=== PATIENT | female | born 1955 | race Hispanic/Latino ===

== ENCOUNTER 2022-08-29 16:07 | Emergency (ER) | payer OTHER ==
[~2022-08-29] VITALS: Ht 157.5 cm; Wt 63.0 kg
[2022-08-29 18:28] LABS: BASOPHILS % (AUTO) 0.7 % (0.0-5.0); EOSINOPHILS % (AUTO) 0.8 % (0.0-8.0); HEMATOCRIT 35.4 % (36-48); LYMPHOCYTES % (AUTO) 27.4 % (21.0-51.0); MEAN CORPUSCULAR HEMOGLOBIN 28.7 pg (27.0-33.0); MEAN CORPUSCULAR HGB CONC 33.3 g/dL (32.0-36.0); MEAN CORPUSCULAR VOLUME 86.1 fL (79-99); MONOCYTES % (AUTO) 6.9 % (3.0-13.0); NEUTROPHILS % (AUTO) 63.5 % (40.0-77.0); PLATELET COUNT (AUTO) 319 K/uL (130-400); RED BLOOD CELL COUNT(AUTO) 4.11 MIL/uL (4.00-5.50); RED CELL DISTRIBUTION WIDTH 13.5 % (11.0-15.5); WHITE BLOOD COUNT (AUTO) 12.3 K/uL (4.8-10.8)
[2022-08-29] MEDS ORDERED: 0.9%NACL 1000ML 1,000 ML IV ONE (18:30)
[2022-08-29] MEDS ORDERED: ONDANSETRON 4MG INJ IVP ONE (18:30)
[2022-08-29 18:35] LABS: APPEARANCE,URINE CLEAR (CLEAR); BILIRUBIN,URINE NEGATIVE (NEGATIVE); COLOR,URINE LIGHT-YELLOW (YELLOW); GLUCOSE, URINE (UA) NEGATIVE (NEGATIVE); KETONES,URINE NEGATIVE (NEGATIVE); LEUKOCYTE ESTERASE ,URINE NEGATIVE Leu/uL (NEGATIVE); NITRATE,URINE NEGATIVE (NEGATIVE); OCCULT BLOOD,URINE NEGATIVE (NEGATIVE); PROTEIN,URINE NEGATIVE (NEGATIVE); UROBILINOGEN,URINE 0.2 mg/dL (0.2-1.0)
[2022-08-29 18:47] LABS: ALBUMIN 3.9 g/dL (3.5-5.0); BILIRUBIN,DIRECT 0.1 mg/dL (0.0-0.3); POTASSIUM 3.8 mmol/L (3.5-5.1); TOTAL PROTEIN, SERUM 7.6 g/dL (6.0-8.3)
[2022-08-29] MEDS ORDERED: ONDANSETRON 4MG INJ ONE (19:46)
[2022-08-29] MEDS ORDERED: MORPHINE 4 MG SYG IVP PRN (20:00)
[2022-08-29 20:22] VITALS: BP 152/52
[2022-08-29] MEDS ORDERED: ASPIRIN 81MG CHEW TAB PO ONE (20:30)
== END 2022-08-29 21:18 | disposition home or self-care (01) ==
LOC: EDH 16:07
DX: R10.11 Right upper quadrant pain (principal); E11.9 Type 2 diabetes mellitus without complications; I10 Essential (primary) hypertension; Z88.0 Allergy status to penicillin; Z88.6 Allergy status to analgesic agent; Z88.8 Allergy status to other drugs, medicaments and biological substances
CPT/HCPCS: 99285; 96374; 76705; 80076; 84484; 80048; 83690; 85025; 81003; 36415; 93005; J2405

== ENCOUNTER → 2022-10-25 | Outpatient (CLI) | payer OTHER | END | disposition home or self-care (01) | LOC: RAH 07:15 | PROVIDERS: ATTEND Internal Medicine Gastroenterology | DX: R14.0 Abdominal distension (gaseous) (principal) | CPT/HCPCS: 78264; A9541 ==

== ENCOUNTER → 2022-12-02 | Outpatient (CLI) | payer OTHER ==
[2022-12-02 15:14] LABS: BASOPHILS % (AUTO) 0.5 % (0.0-5.0); EOSINOPHILS % (AUTO) 0.6 % (0.0-8.0); HEMATOCRIT 37.5 % (36-48); LYMPHOCYTES % (AUTO) 26.1 % (21.0-51.0); MEAN CORPUSCULAR HEMOGLOBIN 29.8 pg (27.0-33.0); MEAN CORPUSCULAR HGB CONC 32.8 g/dL (32.0-36.0); MEAN CORPUSCULAR VOLUME 90.8 fL (79-99); MONOCYTES % (AUTO) 7.8 % (3.0-13.0); NEUTROPHILS % (AUTO) 62.5 % (40.0-77.0); PLATELET COUNT (AUTO) 338 K/uL (130-400); RED BLOOD CELL COUNT(AUTO) 4.13 MIL/uL (4.00-5.50); RED CELL DISTRIBUTION WIDTH 13.6 % (11.0-15.5); WHITE BLOOD COUNT (AUTO) 16.5 K/uL (4.8-10.8)
[2022-12-02 15:35] LABS: ALBUMIN 3.8 g/dL (3.5-5.0); POTASSIUM 4.3 mmol/L (3.5-5.1); THYROID STIMULATING HORMONE 1.03 uIU/mL (0.36-3.74); TOTAL PROTEIN, SERUM 7.5 g/dL (6.0-8.3)
== END | disposition home or self-care (01) ==
LOC: LAB 14:31
PROVIDERS: ATTEND Internal Medicine
DX: E11.65 Type 2 diabetes mellitus with hyperglycemia (principal); E78.2 Mixed hyperlipidemia; R07.9 Chest pain, unspecified; R05.1 Acute cough; Z76.89 Persons encountering health services in other specified circumstances
CPT/HCPCS: 36415; 80053; 80061; 84443; 85025

== ENCOUNTER → 2022-12-11 | Outpatient (CLI) | payer OTHER | END | disposition home or self-care (01) | LOC: RAH 13:03 | PROVIDERS: ATTEND Internal Medicine | DX: R93.3 Abnormal findings on diagnostic imaging of other parts of digestive tract (principal) | CPT/HCPCS: 74150 ==

== ENCOUNTER 2022-12-27 08:25 | Emergency (ER) | payer OTHER ==
[~2022-12-27] VITALS: Ht 157.5 cm; Wt 58.5 kg
[2022-12-27 08:50] LABS: BASOPHILS % (AUTO) 0.8 % (0.0-5.0); EOSINOPHILS % (AUTO) 1.4 % (0.0-8.0); HEMATOCRIT 41.3 % (36-48); LYMPHOCYTES % (AUTO) 29.1 % (21.0-51.0); MEAN CORPUSCULAR HEMOGLOBIN 29.5 pg (27.0-33.0); MEAN CORPUSCULAR HGB CONC 32.7 g/dL (32.0-36.0); MEAN CORPUSCULAR VOLUME 90.4 fL (79-99); NEUTROPHILS % (AUTO) 58.5 % (40.0-77.0); PLATELET COUNT (AUTO) 330 K/uL (130-400); RED BLOOD CELL COUNT(AUTO) 4.57 MIL/uL (4.00-5.50); RED CELL DISTRIBUTION WIDTH 13.5 % (11.0-15.5); WHITE BLOOD COUNT (AUTO) 14.3 K/uL (4.8-10.8)
[2022-12-27 09:11] LABS: CREATININE 0.7 mg/dL (0.5-1.5); POTASSIUM 3.2 mmol/L (3.5-5.1)
[2022-12-27 09:13] LABS: B-TYPE NATRIURETIC PEPTIDE 26 pg/mL (0-100)
[2022-12-27 09:15] LABS: ALBUMIN 3.9 g/dL (3.5-5.0); TOTAL PROTEIN, SERUM 7.6 g/dL (6.0-8.3)
[2022-12-27 09:18] LABS: APPEARANCE,URINE CLEAR (CLEAR); BILIRUBIN,URINE NEGATIVE (NEGATIVE); COLOR,URINE COLORLESS (YELLOW); GLUCOSE, URINE (UA) NEGATIVE (NEGATIVE); KETONES,URINE NEGATIVE (NEGATIVE); LEUKOCYTE ESTERASE ,URINE NEGATIVE Leu/uL (NEGATIVE); NITRATE,URINE NEGATIVE (NEGATIVE); OCCULT BLOOD,URINE NEGATIVE (NEGATIVE); PROTEIN,URINE NEGATIVE (NEGATIVE); UROBILINOGEN,URINE 0.2 mg/dL (0.2-1.0)
[2022-12-27 09:29] LABS: MUCUS,URINE RARE LPF (None Seen); RBC,URINE 0-1 /HPF (0-1); SQUAMOUS EPITHELIAL CELL,UR RARE /HPF (0-2); WBC,URINE 0-1 /HPF (0-1)
[2022-12-27] MEDS ORDERED: POTASSIUM BICARB/CIT AC 25 MEQ TABLET.EFF PO ONE (09:30)
[2022-12-27] MEDS ORDERED: LISINOPRIL 10 MG TABLET PO ONE (09:30)
[2022-12-27] MEDS ORDERED: BENZONATATE 100 MG CAPSULE PO SCH (09:30)
[2022-12-27] MEDS ORDERED: LABETALOL 20MG VIAL IV ONE (09:30)
[2022-12-27] MEDS ORDERED: CEPHALEXIN 500 MG CAPSULE PO ONE (13:00)
[2022-12-27] MEDS ORDERED: LISI10TA24 PO (13:36)
[2022-12-27] MEDS ORDERED: CEPH500B PO (13:36)
[2022-12-27 13:55] VITALS: BP 154/70
== END 2022-12-27 13:54 | disposition home or self-care (01) ==
LOC: EDH 08:25
DX: J45.909 Unspecified asthma, uncomplicated (principal); L03.032 Cellulitis of left toe; I10 Essential (primary) hypertension; R07.89 Other chest pain; E11.9 Type 2 diabetes mellitus without complications; Z79.899 Other long term (current) drug therapy; Z88.0 Allergy status to penicillin; Z88.5 Allergy status to narcotic agent; Z90.49 Acquired absence of other specified parts of digestive tract
CPT/HCPCS: 99285; 96374; 83735; 84484; 80053; 83880; 85025; 81001; 36415; 73660; 93005; J3490

== ENCOUNTER 2024-09-23 13:10 | Emergency (ER) | payer OTHER ==
[~2024-09-23] VITALS: Ht 154.9 cm; Wt 63.5 kg
[~2024-09-23 13:10] MED LIST: CEPH500B PO; LISI10TA24 PO
--- NOTE | 2024-09-23 13:58 | EKG ---
[facility] Test Date: 2024-09-23 Test Time: 13:57:01 Pat Name: REZA MORAN Department: ED[facility] Room: Gender: F [employer] Gre[employer]: [id number] : 1955 Requested By: GABRIELA SETHI Order Number: [id number] Reading MD: Marko Alanis Measurements Intervals [place] Rate: 81 P: 52 GA: 168 QRS: -27 QRSD: 78 T: 90 QT: 335 QTc: 388 Interpretive Statements Sinus rhythm Probable LVH with secondary repol abnrm Compared to ECG 12/27/2022 08:30:08 No significant changes Electronically Signed On 09-23-2024 19:35:36 HEAT READER by Marko Alanis Please click the below link to view image of tracing.
[2024-09-23 14:16] LABS: BASOPHILS # (AUTO) 0.06 K/uL (0.00-0.20); BASOPHILS % (AUTO) 0.5 % (0.0-5.0); EOSINOPHILS # (AUTO) 0.33 K/uL (0.00-0.70); EOSINOPHILS % (AUTO) 2.6 % (0.0-8.0); HEMATOCRIT 33.1 % (36-48); IMMATURE GRANULOCYTE ABSOLUTE 0.15 K/uL (0-1); LYMPHOCYTES # (AUTO) 3.9 K/uL (1.0-4.8); LYMPHOCYTES % (AUTO) 31.4 % (21.0-51.0); MEAN CORPUSCULAR HEMOGLOBIN 30.1 pg (27.0-33.0); MEAN CORPUSCULAR HGB CONC 33.2 g/dL (32.0-36.0); MEAN CORPUSCULAR VOLUME 90.7 fL (79-99); MONOCYTES # (AUTO) 0.9 K/uL (0.1-1.0); MONOCYTES % (AUTO) 6.9 % (3.0-13.0); NEUTROPHILS # (AUTO) 7.2 K/uL (1.8-7.7); NEUTROPHILS % (AUTO) 57.4 % (40.0-77.0); PLATELET COUNT (AUTO) 265 K/uL (130-400); RED BLOOD CELL COUNT(AUTO) 3.65 MIL/uL (4.00-5.50); RED CELL DISTRIBUTION WIDTH 13.8 % (11.0-15.5); WHITE BLOOD COUNT (AUTO) 12.6 K/uL (4.8-10.8)
[2024-09-23 14:37] LABS: B-TYPE NATRIURETIC PEPTIDE 29 pg/mL (0-100); CREATININE 1.2 mg/dL (0.5-1.0); POTASSIUM 4.5 mmol/L (3.5-5.1)
--- NOTE | 2024-09-23 15:01 | ERN ---
General Chief Complaint: Multiple Complaints Stated Complaint: CHEST PAIN,ABDOMINAL PAIN,LOWER BACK PAIN X3 MNTHS Time Seen by MD: 13:11 History of Present Illness Initial Comments 69-year-old female who presents for left lower abdominal pain. Patient reports she has had it for over two weeks. Pain is located in the left lower quadrant radiates to the left flank and suprapubic area. She reports it is tender. She was diagnosed with diverticulitis and she has been taking Flagyl and ciprofloxacin for one week. She denies any fevers, vomiting, or stool changes. She reports increased frequency and burning with urination as well. She reports that she feels like her symptoms are getting worse. She feels like she has a bladder infection more than diverticulitis. Medical history: Diabetes, hypertension, dyslipidemia Surgical history: Cholecystectomy, hysterectomy Allergies: Coded Allergies: Influenza Virus Vaccines (Unverified Allergy, Unknown, 09/23/24) Iodinated Contrast Media (Unverified Allergy, Unknown, 08/29/22) Penicillins (Unverified Allergy, Unknown, 08/29/22) morphine (Unverified Allergy, Unknown, 08/29/22) Home Meds Active Scripts Acetaminophen with Codeine (Acetaminophen-Cod #3 Tablet) 300 Mg-30 Mg Tablet, 1 TAB PO Q6HPRN PRN for pain for 5 Days, #20 TAB 0 Refills Prov:GABRIELA SETHI DO 09/23/24 Sulfamethoxazole/Trimethoprim (Bactrim Ds Tablet) 800 Mg-160 Mg Tablet, 1 TAB PO BID for 7 Days, #14 TAB 0 Refills Prov:GABRIELA SETHI DO 09/23/24 Cephalexin Monohydrate (Keflex) 500 Mg Cap, 500 MG PO TID, #30 CAP 0 Refills Prov:SAMMY RUSSELL MD 12/27/22 Lisinopril (Lisinopril) 10 Mg Tablet, 1 TAB PO DAILY for 30 Days, #30 TAB 0 Refills Prov:SAMMY RUSSELL MD 12/27/22 Past Medical History Past Medical History: Diabetes-Type II, High Cholesterol, Hypertension, UTI Past Surgical History: Cholecystectomy Social History Social History: Negative, Lives with family ROS Dictation CONSTITUTIONAL: No chills, no fever, no weakness, no diaphoresis, no malaise. HEAD/FACE: No signs of trauma. EENT: No eye pain, no blurred vision, no tearing, no double vision, no ear pain, no ear discharge, no nose pain, no nasal congestion, no throat pain, no throat swelling, no mouth pain. RESPIRATORY: No cough, no orthopnea, no SOB, no stridor, no wheezing. CARDIOVASCULAR: No chest pain, no edema, no palpitations, no syncope. GASTROINTESTINAL/ABDOMINAL: Left lower abdominal GENITOURINARY: Pain dysuria increased frequency MUSCULOSKELETAL: No back pain, no gout, no joint pain, no joint swelling, no muscle pain, no muscle stiffness, no neck pain. INTEGUMENTARY: No change in color, no change in hair/nails, no dryness, no lesion, no lumps, no rash. NEUROLOGICAL/PSYCH: No anxiety, not depressed, no emotional problem, no headache, no numbness, no pre-existing deficit, no history of seizures, no t remors, no weakness. HEMATOLOGIC/LYMPHATIC: Not anemic, no history of blood clots, no apparent bleeding, no bruising, glands not swollen. All Systems Negative, Except as Noted. Physical Exam Physical Exam Dictation VITAL SIGNS: Reviewed. GENERAL APPEARANCE: Alert, oriented x3, no acute distress, obese. HEAD AND FACE: Non-traumatic. EYES: PERRL, pink conjunctivas, eyelid no trauma, anterior chamber clear. EARS: Pinnas intact and no signs of trauma or erythema. Ear canals clear and no discharge. TMs no erythema. NOSE: No discharge, no bleeding. OROPHARYNX: Mouth normal, teeth no caries, tongue pink. Pharynx clear, no erythema. Tonsils no exudates, no abscesses noted. Mucous membrane moist. NECK: Supple, non-tender, no thyromegaly, no masses, no JVD, no bruits. BREAST: Deferred. CHEST: No tenderness, no crepitus, no paradoxical movement, no retractions. LUNGS: Clear, well-ventilated, symmetric, no rales, no wheezing, no rhonchi, no stridor, good breath sounds bilaterally. HEART: Regular rate, regular rhythm, no murmur, no gallops. VASCULAR: No peripheral edema. ABDOMEN: Mild left lower quadrant tenderness mild left flank tenderness. RECTAL: Deferred. GENITAL: Deferred. NEUROLOGICAL: Normal speech, gross motor function intact, gross sensory function intact. MUSCULOSKELETAL: Neck nontender, full range of motion, back nontender, full range of motion. EXTREMITIES: Nontender, full range of motion. SKIN: Color pink, dry, no turgor, no rash, no lacerations, no abrasions, no contusions. LYMPHATICS: Deferred. Results Laboratory and Microbiology Lab and Micro Result Laboratory Tests Test 09/23/24 14:06 09/23/24 14:17 White Blood Count 12.6 K/uL (4.8-10.8) H Red Blood Count 3.65 MIL/uL (4.00-5.50) L Hemoglobin 11.0 g/dL (12.0-16.0) L Hematocrit 33.1 % (36-48) L Mean Corpuscular Volume 90.7 fL (79-99) Mean Corpuscular Hemoglobin 30.1 pg (27.0-33.0) Mean Corpuscular Hemoglobin Concent 33.2 g/dL (32.0-36.0) Red Cell Distribution Width 13.8 % (11.0-15.5) Platelet Count 265 K/uL (130-400) Mean Platelet Volume 9.6 fL (7.5-10.5) Immature Granulocyte % (Auto) 1.2 % (0-1) H Neutrophils (%) (Auto) 57.4 % (40.0-77.0) Lymphocytes (%) (Auto) 31.4 % (21.0-51.0) Monocytes (%) (Auto) 6.9 % (3.0-13.0) Eosinophils (%) (Auto) 2.6 % (0.0-8.0) Basophils (%) (Auto) 0.5 % (0.0-5.0) Neutrophils # (Auto) 7.2 K/uL (1.8-7.7) Lymphocytes # (Auto) 3.9 K/uL (1.0-4.8) Monocytes # (Auto) 0.9 K/uL (0.1-1.0) Eosinophils # (Auto) 0.33 K/uL (0.00-0.70) Basophils # (Auto) 0.06 K/uL (0.00-0.20) Absolute Immature Granulocyte (auto 0.15 K/uL (0-1) Nucleated Red Blood Cells 0.0 % (0.0-0.19) Sodium Level 139 mmol/L (136-145) Potassium Level 4.5 mmol/L (3.5-5.1) Chloride Level 102 mmol/L (101-111) Carbon Dioxide Level 28 mmol/L (21-32) Blood Urea Nitrogen 17 mg/dL (7-18) Creatinine 1.2 mg/dL (0.5-1.0) H Glomerular Filtration Rate Calc 49 mL/min (>90) Random Glucose 246 mg/dL (70-105) H Total Calcium 9.1 mg/dL (8.5-10.1) Total Creatine Kinase 69 U/L (21-232) Troponin I High Sensitivity 4.6 ng/L (4-50) B-Type Natriuretic Peptide 29 pg/mL (0-100) Serum Test, Qualitative NEGATIVE (NEGATIVE) Urine Color DARK-YELLOW (YELLOW) Urine Appearance CLEAR (CLEAR) Urine pH 6.0 (5.0-8.0) Urine Specific [place] 1.010 (1.001-1.031) Urine Protein NEGATIVE mg/dL (NEGATIVE) Urine Glucose (UA) 50 mg/dL (NEGATIVE) H Urine Ketones NEGATIVE mg/dL (NEGATIVE) Urine Occult Blood NEGATIVE (NEGATIVE) Urine Nitrate NEGATIVE (NEGATIVE) Urine Bilirubin NEGATIVE mg/dL (NEGATIVE) Urine Urobilinogen 0.2 mg/dL (0.2-1.0) Urine Leukocyte Esterase NEGATIVE Gabrielle/uL MDM CC: LLQ abd pain, L flank pain, suprapubic pain x 1-2 weeks. Comorbidities: DM, HTN, DLD, recent UTI & diverticulitis diagnosis Independent Historian: Patient Differential diagnosis: Perforation, surgical pathology, diverticulitis, UTI, kidney stone, pyelonephritis, other Vital signs: Hypertension 1-2 5/68, otherwise stable. Physical exam: Some left lower quadrant tenderness. No flank tenderness. Nontoxic in appearance. EKG (independently interpreted by me): NSR, rate 85, LAD, good RWP, no STEMI. Labs ( ordered and independently interpreted by me): CBC shows leukocytosis 12.6 1000. Normocytic anemia hemoglobin of 11. No shift or bands. Chemistries show stable electrolytes. Glucose 246. BNP stable. Troponin stable. HCG is negative. Ordered a CT scan of the abdomen and pelvis with contrast, the patient reports that she has not allergic reaction to iodine. We will get a noncontrast abdomen and pelvis CT scan. Patient agreeable. CXR (independently interpreted by me): no acute abnormalities, no focal infiltrates. CT abd/pelv w/o contrast (independently interpreted by me): no free air, no signs of diverticulitis, no obvious kidney stones. Stable. Due to pateint's symptoms, will give dose of Rocephin. Appears to be related to UTI. Low suspicion for diverticulitis. No signs of surgical pathology. Treatment in ED: 1L NS, Rocephin, Toradol IV. Patient is stable. I considered admission, but patient prefers DC at this time. Stable VS, stable labs, stable CT scan. Will change abx from ciprofloxacin to Bactrim. Recommend PCP f/u. REASON: PAIN ORDERING PHYSICIAN: GABRIELA SETHI DO PROCEDURE: ABD PEL WO - CT ABDOMEN/PELVIS W/O CONTRAST CT ABDOMEN/PELVIS W/O CONTRAST REASON: PAIN COMPARISON: 12/11/2022 FINDINGS: Lung bases are clear. There are no focal liver lesions. There are normal-appearing kidneys.. 2.2 cm cystic lesion is again noted in the tail of the pancreas, this is unchanged compared to prior exam in 2022. Pancreas appears otherwise unremarkable. Spleen appears unremarkable. The gallbladder appears normal as well. Bowel loops appear unremarkable. There is no CT evidence of acute appendicitis. There is no evidence of free fluid or intraperitoneal air. There are no focal fluid collections. Aorta and retroperitoneum appear normal as do pelvic soft tissue structures. The anterior abdominal wall is intact. Osseous structures appear unremarkable. IMPRESSION: 1. No acute finding in the abdomen or pelvis. 2. There is a 2.2 cm cystic lesion in the tail of the pancreas which appears stable compared to previous study 12/11/2022 REASON: chest pain ORDERING PHYSICIAN: GABRIELA SETHI DO PROCEDURE: CXR1VW - CHEST 1VW CHEST 1VW REASON: chest pain COMPARISON: None. FINDINGS: Single view of the chest was obtained. Lungs are clear. Heart size is normal. There is no pulmonary vascular congestion. Mediastinum and bony thorax appear unremarkable. IMPRESSION: 1. Normal single view chest x-ray. ED Course Orders Procedure Category Date Status Time Cardiac Panel LAB 09/23/24 Complete 13:46 Cbc With Differential LAB 09/23/24 Complete 13:46 Basic Metabolic Panel LAB 09/23/24 Complete 13:46 B-Type Natriuretic LAB 09/23/24 Complete Peptide 13:46 Testing, LAB 09/23/24 Complete Serum Hcg 13:46 Urinalysis Profile LAB 09/23/24 In Process 13:46 12 Lead Ekg Tracing- EKG 09/23/24 Complete Technical 13:46 Chest 1vw RAD 09/23/24 Resulted 13:46 Ct Abdomen/Pelvis W/O CT 09/23/24 Resulted Contrast 14:43 0.9%Nacl 1000ml (Ns PHA 09/23/24 Complete 1000ml) 16:30 Ceftriaxone 1g Vial PHA 09/23/24 Complete (Rocephine 1g Inj) 16:30 Ketorolac PHA 09/23/24 Complete Tromethamine 15mg/Ml 16:30 Current Medications Medications (Trade) Dose Ordered Sig/Federico Route PRN Reason Start Time Stop Time Status Last Admin Dose Admin Ceftriaxone Sodium (ROCEphine 1G INJ) 1 gm ONCE ONCE IVPB 09/23/24 16:30 09/23/24 16:31 DC 09/23/24 16:52 Ketorolac Tromethamine (toRADol) 15 mg ONCE ONCE IV 09/23/24 16:30 09/23/24 16:31 DC 09/23/24 16:51 Sodium Chloride 1,000 ml @ 0 mls/hr ONCE ONCE IV 09/23/24 16:30 09/23/24 16:31 DC 09/23/24 16:51 Vital Signs Date Time Temp Pulse Resp B/P (MAP) Pulse Ox O2 Delivery O2 Flow Rate FiO2 09/23/24 14:46 98.1 85 20 155/68 99 Room Air* 0 21 09/23/24 13:45 98.1 85 20 155/68 99 0 DX & DISP Disposition: Discharge Departure Impression: Primary Impression: UTI (urinary tract infection) Additional Impression: Left sided abdominal pain Condition: Stable Scripts Acetaminophen with Codeine (Acetaminophen-Cod #3 Tablet) 300 Mg-30 Mg Tablet 1 TAB PO Q6HPRN PRN for pain for 5 Days, #20 TAB 0 Refills Prov: GABRIELA SETHI DO 09/23/24 Sulfamethoxazole/Trimethoprim (Bactrim Ds Tablet) 800 Mg-160 Mg Tablet 1 TAB PO BID for 7 Days, #14 TAB 0 Refills Prov: GABRIELA SETHI DO 09/23/24 Additional Instructions: Your symptoms are consistent with a UTI and improving diverticulitis. Your labwork is stable (CBC, BMP, liver function tests, lipase, UA). The CT scan of your abdomen & pelvis is unremarkable. Your chest x-ray and EKG are stable. You received IV fluids, rocephin, and toradol here in the ED. I recommend that you stop taking the ciprofloxacin. I've prescribed Bactrim. Start taking this medication. You can take over the counter ibuprofen for pain (600mg) up to 3 times daily. I've also prescribed T#3 (tylenol w/ codeine). Take this up to 4 times per day as needed for pain. Follow up with Dr Yin next week for re-evaluation. Return to the emergency department sooner if you have concerns. Referrals: ALMAZ YIN MD (PCP) GABRIELA SETHI DO Sep 23, 2024 15:01
--- NOTE | 2024-09-23 15:16 | HMCIMG ---
CHEST 1VW REASON: chest pain COMPARISON: None. FINDINGS: Single view of the chest was obtained. Lungs are clear. Heart size is normal. There is no pulmonary vascular congestion. Mediastinum and bony thorax appear unremarkable. IMPRESSION: 1. Normal single view chest x-ray.
--- NOTE | 2024-09-23 15:23 | HMCIMG ---
CT ABDOMEN/PELVIS W/O CONTRAST REASON: PAIN COMPARISON: 12/11/2022 FINDINGS: Lung bases are clear. There are no focal liver lesions. There are normal-appearing kidneys.. 2.2 cm cystic lesion is again noted in the tail of the pancreas, this is unchanged compared to prior exam in 2022. Pancreas appears otherwise unremarkable. Spleen appears unremarkable. The gallbladder appears normal as well. Bowel loops appear unremarkable. There is no CT evidence of acute appendicitis. There is no evidence of free fluid or intraperitoneal air. There are no focal fluid collections. Aorta and retroperitoneum appear normal as do pelvic soft tissue structures. The anterior abdominal wall is intact. Osseous structures appear unremarkable. IMPRESSION: 1. No acute finding in the abdomen or pelvis. 2. There is a 2.2 cm cystic lesion in the tail of the pancreas which appears stable compared to previous study 12/11/2022 CT was performed with one or more following dose reduction techniques: automated exposure control, adjustment of the mA and kv according to patient's size, or use of a iterative reconstruction technique.
[2024-09-23 16:21] LABS: APPEARANCE,URINE CLEAR (CLEAR); BILIRUBIN,URINE NEGATIVE (NEGATIVE); COLOR,URINE DARK-YELLOW (YELLOW); GLUCOSE, URINE (UA) 50 mg/dL (NEGATIVE); KETONES,URINE NEGATIVE (NEGATIVE); LEUKOCYTE ESTERASE ,URINE NEGATIVE Leu/uL (NEGATIVE); NITRATE,URINE NEGATIVE (NEGATIVE); OCCULT BLOOD,URINE NEGATIVE (NEGATIVE); PROTEIN,URINE NEGATIVE (NEGATIVE); UROBILINOGEN,URINE 0.2 mg/dL (0.2-1.0)
[2024-09-23] MEDS ORDERED: SULF1TAB42 PO (16:50)
[2024-09-23 16:51] LABS: ADD UA MICROSCOPIC YES
[2024-09-23] MEDS: 0.9%NACL 1000ML 1,000 ML IV ONE (16:51)
[2024-09-23] MEDS: ketOROlac 15MG/ML VIAL (15MG/ML) IV ONE (16:51)
[2024-09-23] MEDS: cefTRIAXone 1G VIAL IVPB ONE (16:52)
[2024-09-23] MEDS ORDERED: ACET-2079 PO (16:53)
[2024-09-23 17:05] LABS: MUCUS,URINE RARE LPF (None Seen); RBC,URINE 0-1 /HPF (0-1); SQUAMOUS EPITHELIAL CELL,UR FEW /HPF (0-2)
[2024-09-23 18:18] VITALS: BP 138/62; PULSE 80; RESP 20; TEMP 98.1; O2SAT 99
== END 2024-09-23 18:19 | disposition home or self-care (01) ==
LOC: EDH 13:10
DX: N39.0 Urinary tract infection, site not specified (principal); E11.9 Type 2 diabetes mellitus without complications; E78.00 Pure hypercholesterolemia, unspecified; I10 Essential (primary) hypertension; Z79.899 Other long term (current) drug therapy; Z88.0 Allergy status to penicillin; Z88.5 Allergy status to narcotic agent; Z88.7 Allergy status to serum and vaccine; Z90.49 Acquired absence of other specified parts of digestive tract; Z90.710 Acquired absence of both cervix and uterus; Z91.041 Radiographic dye allergy status
CPT/HCPCS: 99284; 74176; 96374; 71045; 96375; 82550; 84484; 80048; 83880; 84703; 85025; 81001; 36415; 93005; J7030; J0696; J1885

== ENCOUNTER 2024-11-29 21:18 | Emergency (ER) | payer OTHER ==
[~2024-11-29] VITALS: Ht 154.9 cm; Wt 64.4 kg
[~2024-11-29 21:18] MED LIST changes: +ACET-2079 PO; +SULF1TAB42 PO
[2024-11-29] MEDS: hydroMORPHone 1 MG INJ IVP ONE (22:05)
[2024-11-29] MEDS: LIDOCAINE 4% ADH..PATCH TP ONE (22:05)
[2024-11-29] MEDS: ketOROlac 15MG/ML VIAL (15MG/ML) IV ONE (22:05)
[2024-11-29 22:07] LABS: APPEARANCE,URINE CLEAR (CLEAR); BILIRUBIN,URINE NEGATIVE (NEGATIVE); COLOR,URINE COLORLESS (YELLOW); GLUCOSE, URINE (UA) NEGATIVE (NEGATIVE); KETONES,URINE NEGATIVE (NEGATIVE); LEUKOCYTE ESTERASE ,URINE NEGATIVE Leu/uL (NEGATIVE); NITRATE,URINE NEGATIVE (NEGATIVE); OCCULT BLOOD,URINE NEGATIVE (NEGATIVE); PH,URINE 5.5 (5.0-8.0); PROTEIN,URINE NEGATIVE (NEGATIVE); UROBILINOGEN,URINE 0.2 mg/dL (0.2-1.0)
[2024-11-29 22:10] LABS: RBC,URINE 0-1 /HPF (0-1); SQUAMOUS EPITHELIAL CELL,UR RARE /HPF (0-2); WBC,URINE 0-1 /HPF (0-1)
--- NOTE | 2024-11-29 22:44 | ERN ---
General Chief Complaint: Post-Op Problem Stated Complaint: C/O BACK PAIN, HAD BACK SX ON FRI Time Seen by MD: 21:20 History of Present Illness Initial Comments 69-year-old female, history of hypertension diabetes, presents for upper back pain. Patient has a history of a compression fracture. On 11/26/2024 she had kyphoplasty procedure by Dr. Pina. She has been taking [place] b.i.d. with minimal effect. She reports significant pain to the T12 area where she had the procedure. She denies any fevers or systemic illness. Denies any neurovascular disorder, incontinence, motor dysfunction, or any other red flag. Allergies: Coded Allergies: Influenza Virus Vaccines (Unverified Allergy, Unknown, 09/23/24) Iodinated Contrast Media (Unverified Allergy, Unknown, 08/29/22) Penicillins (Unverified Allergy, Unknown, 08/29/22) morphine (Unverified Allergy, Unknown, 08/29/22) Home Meds Active Scripts Meloxicam (Meloxicam) 15 Mg Tablet, 15 MG PO DAILY PRN for PAIN for 10 Days, #10 TAB Prov:GABRIELA SETHI DO 11/29/24 Oxycodone HCl/Acetaminophen (Percocet 5-325 mg Tablet) 5 Mg-325 Mg Tablet, 1 TAB PO TIDP PRN for PAIN for 5 Days, #15 TAB 0 Refills Prov:GABRIELA SEHTI DO 11/29/24 Acetaminophen with Codeine (Acetaminophen-Cod #3 Tablet) 300 Mg-30 Mg Tablet, 1 TAB PO Q6HPRN PRN for pain for 5 Days, #20 TAB 0 Refills Prov:GABRIELA SETHI DO 09/23/24 Sulfamethoxazole/Trimethoprim (Bactrim Ds Tablet) 800 Mg-160 Mg Tablet, 1 TAB PO BID for 7 Days, #14 TAB 0 Refills Prov:GABRIELA SETHI DO 09/23/24 Cephalexin Monohydrate (Keflex) 500 Mg Cap, 500 MG PO TID, #30 CAP 0 Refills Prov:SAMMY RUSSELL MD 12/27/22 Lisinopril (Lisinopril) 10 Mg Tablet, 1 TAB PO DAILY for 30 Days, #30 TAB 0 Refills Prov:SAMMY RUSSELL MD 12/27/22 Past Medical History Past Medical History: Diabetes-Type II, Hypertension Past Surgical History: Hysterectomy, Cholecystectomy, Other Surgical History Other: BACK SX Social History Social History: Negative, Lives with family ROS Dictation CONSTITUTIONAL: No chills, no fever, no weakness, no diaphoresis, no malaise. HEAD/FACE: No signs of trauma. EENT: No eye pain, no blurred vision, no tearing, no double vision, no ear pain, no ear discharge, no nose pain, no nasal congestion, no throat pain, no throat swelling, no mouth pain. RESPIRATORY: No cough, no orthopnea, no SOB, no stridor, no wheezing. CARDIOVASCULAR: No chest pain, no edema, no palpitations, no syncope. GASTROINTESTINAL/ABDOMINAL: No abdominal pain, no constipation, no diarrhea, no nausea, no vomiting. GENITOURINARY: No abnormal discharge, no dysuria, no frequent urination, no hematuria. No complaints of pain in the genitals. MUSCULOSKELETAL: Back pain INTEGUMENTARY: No change in color, no change in hair/nails, no dryness, no lesion, no lumps, no rash. NEUROLOGICAL/PSYCH: No anxiety, not depressed, no emotional problem, no headache, no numbness, no pre-existing deficit, no history of seizures, no tremors, no weakness. HEMATOLOGIC/LYMPHATIC: Not anemic, no history of blood clots, no apparent bleeding, no bruising, glands not swollen. All Systems Negative, Except as Noted. Physical Exam Physical Exam Dictation VITAL SIGNS: Reviewed. GENERAL APPEARANCE: Alert, oriented x3, no acute distress. HEAD AND FACE: Non-traumatic. EYES: PERRL, pink conjunctivas, eyelid no trauma, anterior chamber clear. EARS: Pinnas intact and no signs of trauma or erythema. Ear canals clear and no discharge. TMs no erythema. NOSE: No discharge, no bleeding. OROPHARYNX: Mouth normal, teeth no caries, tongue pink. Pharynx clear, no erythema. Tonsils no exudates, no abscesses noted. Mucous membrane moist. NECK: Supple, non-tender, no thyromegaly, no masses, no JVD, no bruits. BREAST: Deferred. CHEST: No tenderness, no crepitus, no paradoxical movement, no retractions. LUNGS: Clear, well-ventilated, symmetric, no rales, no wheezing, no rhonchi, no stridor, good breath sounds bilaterally. HEART: Regular rate, regular rhythm, no murmur, no gallops. VASCULAR: No peripheral edema. ABDOMEN: Soft, positive bowel sounds, nondistended, no guarding, nontender, no rebound, no masses no hepatomegaly, no splenomegaly, no Ashford's sign, no hernias. RECTAL: Deferred. GENITAL: Deferred. NEUROLOGICAL: Normal speech, gross motor function intact, gross sensory function intact. MUSCULOSKELETAL: Neck nontender, full range of motion, back nontender, full range of motion. EXTREMITIES: Nontender, full range of motion. SKIN: Color pink, dry, no turgor, no rash, no lacerations, no abrasions, no contusions. LYMPHATICS: Deferred. Results Laboratory and Microbiology Lab and Micro Result Laboratory Tests Test 11/29/24 22:00 11/29/24 22:43 Urine Color COLORLESS (YELLOW) Urine Appearance CLEAR (CLEAR) Urine pH 5.5 (5.0-8.0) Urine Specific [place] 1.010 (1.001-1.031) Urine Protein NEGATIVE mg/dL (NEGATIVE) Urine Glucose (UA) NEGATIVE mg/dL (NEGATIVE) Urine Ketones NEGATIVE mg/dL (NEGATIVE) Urine Occult Blood NEGATIVE (NEGATIVE) Urine Nitrate NEGATIVE (NEGATIVE) Urine Bilirubin NEGATIVE mg/dL (NEGATIVE) Urine Urobilinogen 0.2 mg/dL (0.2-1.0) Urine Leukocyte Esterase NEGATIVE Gabrielle/uL Urine RBC 0-1 /HPF (0-1) Urine WBC 0-1 /HPF (0-1) Urine Squamous Epithelial Cells RARE /HPF (0-2) Urine Bacteria None /HPF (None Seen) White Blood Count 9.7 K/uL (4.8-10.8) Red Blood Count 3.93 MIL/uL (4.00-5.50) L Hemoglobin 11.6 g/dL (12.0-16.0) L Hematocrit 35.9 % (36-48) L Mean Corpuscular Volume 91.3 fL (79-99) Mean Corpuscular Hemoglobin 29.5 pg (27.0-33.0) Mean Corpuscular Hemoglobin Concent 32.3 g/dL (32.0-36.0) Red Cell Distribution Width 12.7 % (11.0-15.5) Platelet Count 277 K/uL (130-400) Mean Platelet Volume 10.2 fL (7.5-10.5) Immature Granulocyte % (Auto) 0.8 % (0-1) Neutrophils (%) (Auto) 42.7 % (40.0-77.0) Lymphocytes (%) (Auto) 38.8 % (21.0-51.0) Monocytes (%) (Auto) 11.5 % (3.0-13.0) Eosinophils (%) (Auto) 5.4 % (0.0-8.0) Basophils (%) (Auto) 0.8 % (0.0-5.0) Neutrophils # (Auto) 4.1 K/uL (1.8-7.7) Lymphocytes # (Auto) 3.8 K/uL (1.0-4.8) Monocytes # (Auto) 1.1 K/uL (0.1-1.0) H Eosinophils # (Auto) 0.52 K/uL (0.00-0.70) Basophils # (Auto) 0.08 K/uL (0.00-0.20) Absolute Immature Granulocyte (auto 0.08 K/uL (0-1) Nucleated Red Blood Cells 0.0 % (0.0-0.19) Sodium Level 135 mmol/L (136-145) L Potassium Level 4.1 mmol/L (3.5-5.1) Chloride Level 99 mmol/L (101-111) L Carbon Dioxide Level 28 mmol/L (21-32) Blood Urea Nitrogen 17 mg/dL (7-18) Creatinine 0.8 mg/dL (0.5-1.0) Glomerular Filtration Rate Calc 80 mL/min (>90) Random Glucose 165 mg/dL (70-105) H Total Calcium 9.3 mg/dL (8.5-10.1) MDM CC: T12 area back pain recent back surgery 11/26/[address] Pina Historian: patient Comorbidities: DM, HTN Differential diagnosis: post op pain, chronic pain, fracture, infection, urinary infection/stone, etc. VS: HTN 206/86, otherwise stable. Thoracic spine XR: No acute fractures or abnormalities. T12 does have compression fracture with some cement for the kyphoplasty was performed. No major abnormalities per my independent interpretation. Labs: No leukocytosis or anemia. Electrolytes are stable. Urinalysis is normal. Independently interpreted by me. Treatment in the ER: Patient received IV Dilaudid, IV Toradol, and a lidocaine patch for pain control. Re-evaluation: Pain is improved. Plan: Patient is currently taking [place] b.i.d. for pain. We will increase the dosing to Percocets TID as needed/p.r.n.. We will also add meloxicam. Patient has good follow up, she has a scheduled appointment for 48 hours from now with the neurosurgeon. REASON: t12 recent fx & procedure ORDERING PHYSICIAN: GABRIELA SETHI DO PROCEDURE: THOR 3VW - THORACIC SPINE 3VWS THORACIC SPINE 3VWS HISTORY: T12 fracture COMPARISON: None FINDINGS: 3 images of thoracic spine were obtained. Compression fracture is seen of T12 with vertebroplasty changes with 50% loss of height. There is straightening of normal lordotic curvature which may be related to muscle spasm or positioning. No other loss of vertebral height is seen. Bony osteopenia is seen. Degenerative changes are seen. IMPRESSION: 1. Findings as described above. ED Course Orders Procedure Category Date Status Time Thoracic Spine 3vws RAD 11/29/24 Resulted 21:55 Urinalysis LAB 11/29/24 Complete W/Microscopic 21:55 Hydromorphone 1 Mg PHA 11/29/24 Complete Inj (Dilaudid 1mg Inj 22:00 Ketorolac PHA 11/29/24 Complete Tromethamine 15mg/Ml 22:00 Lidocaine (Lidocaine PHA 11/29/24 Complete Patch 4%) 22:00 Cbc With Differential LAB 11/29/24 Complete 22:40 Basic Metabolic Panel LAB 11/29/24 Complete 22:40 Current Medications Medications (Trade) Dose Ordered Sig/Federico Route PRN Reason Start Time Stop Time Status Last Admin Dose Admin Hydromorphone HCl (DiLAUDid 1MG INJ) 1 mg ONCE ONCE IVP 11/29/24 22:00 11/29/24 22:01 DC 11/29/24 22:05 Ketorolac Tromethamine (toRADol) 15 mg ONCE ONCE IV 11/29/24 22:00 11/29/24 22:01 DC 11/29/24 22:05 Lidocaine (Lidocaine Patch 4%) 1 each ONCE ONCE TP 11/29/24 22:00 11/29/24 22:01 DC 11/29/24 22:05 Vital Signs Date Time Temp Pulse Resp B/P (MAP) Pulse Ox O2 Delivery O2 Flow Rate FiO2 11/29/24 23:18 98.1 78 16 132/59 97 Room Air* 0 21 11/29/24 22:35 98.1 81 18 144/65 96 Room Air* 0 21 11/29/24 21:50 98.1 84 18 169/77 97 Room Air* 0 21 11/29/24 21:20 98.2 88 20 206/86 98 Room Air DX & DISP Disposition: Discharge Departure Impression: Primary Impression: Thoracic spine pain Additional Impressions: Thoracic compression fracture, Post-operative pain Condition: Stable Scripts Meloxicam (Meloxicam) 15 Mg Tablet 15 MG PO DAILY PRN for PAIN for 10 Days, #10 TAB Prov: GABRIELA SETHI DO 11/29/24 Oxycodone HCl/Acetaminophen (Percocet 5-325 mg Tablet) 5 Mg-325 Mg Tablet 1 TAB PO TIDP PRN for PAIN for 5 Days, #15 TAB 0 Refills Prov: GABRIELA SETHI DO 11/29/24 Additional Instructions: Your symptoms are consistent with a repaired thoracic compression fracture. The x-ray shows the compression fracture with the recent procedure. There were not any abnormalities otherwise. Your lab work (CBC, BMP, urinalysis) is normal. There are no signs of significant fraction at this time. You received IV pain control in the ER. I have increase the strength of your pain medication. Stop taking the hydrocodone-acetaminophen tabs that you were prescribed. I have prescribed oxycodone-acetaminophen, which is stronger. You can take this up to 3 times a day as needed. I have also added meloxicam, which is a nonsteroidal anti-inflammatory pain medication. Take this once per day for the next 5-10 days as needed. You can continue with the antibiotic and muscle relaxant that you are already prescribed. Continue with all other home medications. You can use Voltaren gel or lidocaine patches as needed on your back. It these medications are [id number]. Please follow up with Dr. Pina as already scheduled. Return to the ED as needed. Referrals: ALMAZ YIN MD (PCP) GABRIELA SETHI DO Nov 29, 2024 22:44
[2024-11-29 22:51] LABS: BASOPHILS # (AUTO) 0.08 K/uL (0.00-0.20); BASOPHILS % (AUTO) 0.8 % (0.0-5.0); EOSINOPHILS # (AUTO) 0.52 K/uL (0.00-0.70); EOSINOPHILS % (AUTO) 5.4 % (0.0-8.0); HEMATOCRIT 35.9 % (36-48); IMMATURE GRANULOCYTE ABSOLUTE 0.08 K/uL (0-1); LYMPHOCYTES # (AUTO) 3.8 K/uL (1.0-4.8); LYMPHOCYTES % (AUTO) 38.8 % (21.0-51.0); MEAN CORPUSCULAR HEMOGLOBIN 29.5 pg (27.0-33.0); MEAN CORPUSCULAR HGB CONC 32.3 g/dL (32.0-36.0); MEAN CORPUSCULAR VOLUME 91.3 fL (79-99); MONOCYTES # (AUTO) 1.1 K/uL (0.1-1.0); MONOCYTES % (AUTO) 11.5 % (3.0-13.0); NEUTROPHILS # (AUTO) 4.1 K/uL (1.8-7.7); NEUTROPHILS % (AUTO) 42.7 % (40.0-77.0); PLATELET COUNT (AUTO) 277 K/uL (130-400); RED BLOOD CELL COUNT(AUTO) 3.93 MIL/uL (4.00-5.50); RED CELL DISTRIBUTION WIDTH 12.7 % (11.0-15.5); WHITE BLOOD COUNT (AUTO) 9.7 K/uL (4.8-10.8)
[2024-11-29] MEDS ORDERED: MELO-108 PO (22:59)
[2024-11-29] MEDS ORDERED: OXYC-38 PO (22:59)
[2024-11-29 23:03] LABS: CREATININE 0.8 mg/dL (0.5-1.0); POTASSIUM 4.1 mmol/L (3.5-5.1)
[2024-11-29 23:18] VITALS: BP 132/59; PULSE 78; RESP 16; TEMP 98.1; O2SAT 97
--- NOTE | 2024-11-29 23:22 | HMCIMG ---
THORACIC SPINE 3VWS HISTORY: T12 fracture COMPARISON: None FINDINGS: 3 images of thoracic spine were obtained. Compression fracture is seen of T12 with vertebroplasty changes with 50% loss of height. There is straightening of normal lordotic curvature which may be related to muscle spasm or positioning. No other loss of vertebral height is seen. Bony osteopenia is seen. Degenerative changes are seen. IMPRESSION: 1. Findings as described above.
== END 2024-11-29 23:37 | disposition home or self-care (01) ==
LOC: EDH 21:18
DX: M48.54XA Collapsed vertebra, not elsewhere classified, thoracic region, initial encounter for fracture (principal); M54.6 Pain in thoracic spine; G89.18 Other acute postprocedural pain; E11.9 Type 2 diabetes mellitus without complications; I10 Essential (primary) hypertension; Z79.899 Other long term (current) drug therapy; Z88.0 Allergy status to penicillin; Z88.5 Allergy status to narcotic agent; Z88.7 Allergy status to serum and vaccine; Z90.49 Acquired absence of other specified parts of digestive tract; Z90.710 Acquired absence of both cervix and uterus; Z91.041 Radiographic dye allergy status
CPT/HCPCS: 99283; 96374; 96375; 80048; 85025; 81001; 36415; 72072; J1885; J1171

== ENCOUNTER → 2025-03-15 | Outpatient (CLI) | payer OTHER ==
[~2025-03-15] MED LIST changes: +MELO-108 PO; +OXYC-38 PO
--- NOTE | 2025-03-15 12:29 | HMCIMG ---
Exam Type: THORACIC SPINE SERIES 3 views History: PAIN IN THORACIC SPINE Comparison: none Findings: Spondylitic and degenerative changes of the dorsal spine are seen. There are degenerative changes of the apophyseal joints as well. There is osteopenia and there is an old healed compression fractures status post vertebroplasty at T12. The disc spaces are preserved. No acute fractures or dislocations are noted. No paraspinal soft tissue abnormalities are seen. Impression: 1. DEGENERATIVE CHANGES OF THE SPINE. NO ACUTE FRACTURES OR DISLOCATIONS NOTED AT THIS TIME.
== END | disposition home or self-care (01) ==
LOC: RAH 11:13
PROVIDERS: ATTEND Internal Medicine
DX: M47.814 Spondylosis without myelopathy or radiculopathy, thoracic region (principal); M85.88 Other specified disorders of bone density and structure, other site; M54.6 Pain in thoracic spine
CPT/HCPCS: 72070